=== PATIENT | male | born 1950 | race Caucasian/White ===

== ENCOUNTER 2017-08-09 23:55 | Emergency (ER) | payer MEDICARE, BC ==
[2017-08-10] MEDS ORDERED: HYDROmorphone 1 MG/ML Syringe IVPUSH ONE ×2 (00:06→01:22)
[2017-08-10] MEDS ORDERED: Sodium Chloride 0.9% 10 ML Syringe FLUSH PRN (00:07)
[2017-08-10 01:11] LABS: CHLORIDE,CL 105 mmol/L (98-107); SODIUM,NA 140 mmol/L (136-145)
[2017-08-10] MEDS ORDERED: Take Home: Acetaminophen/HYDROcodone 325-10 MG, 5 Tab Pack PO ONE (01:23)
--- NOTE | 2017-08-10 01:23 | EDM.PDOC ---
ED HPI GENERAL MEDICAL PROBLEM - General Stated Complaint: Left shoulder pain, bruising Time Seen by Provider: 08/09/17 23:55 Source of Information: Reports: Patient History Limitations: Reports: No Limitations - History of Present Illness INITIAL COMMENTS - FREE TEXT/NARRATIVE: Pt. states that he slipped on some from approx. 1 week ago. He states that he landed on his L arm. Pt. states that today he began experiencing ecchymosis, edema, and pain to the area. He denies any new trauma to the area. Pt. is currently anticoagulated with coumadin. Onset Date: 08/10/17 Location: Reports: Upper Extremity, Left Quality: Reports: Ache, Pressure Severity: Severe Worsens with: Reports: Medication - Related Data Allergies Allergy/AdvReac Type Severity Reaction Status Date / Time penicillin Allergy Cannot Verified 08/10/17 01:19 Remember Home Meds: Home Meds Celecoxib [CeleBREX] 200 mg PO DAILY 10/08/14 [History] Insulin Aspart [NovoLOG] 10 unit SQ WMBED 10/08/14 [History] Insulin Glarg,Human.Rec.Analog [LantUS] 55 unit SUBCUT ASDIRECTED 10/08/14 [ History] Losartan/Hydrochlorothiazide [Losartan-HCTZ 50-12.5 MG] 1 each PO DAILY [History] Metoprolol Tartrate 12.5 mg PO BID 10/08/14 [History] Oseltamivir [Tamiflu] 45 mg PO BID 10/08/14 [History] Potassium Chloride [Klor-Con M20] 20 meq PO DAILY 10/08/14 [History] Pravastatin [Pravachol] 5 mg PO DAILY 10/08/14 [History] Warfarin Sodium [Jantoven] 5 mg PO DAILY 10/08/14 [History] metFORMIN [Glucophage] 1,000 mg PO BIDM 10/08/14 [History] Social & Family History - Tobacco Use Smoking Status *Q: Unknown Ever Smoked Review of Systems - Review of Systems Review Of Systems: See Below Constitutional: Reports: No Symptoms Eyes: Reports: No Symptoms Ears: Reports: No Symptoms Nose: Reports: No Symptoms Mouth/Throat: Reports: No Symptoms Respiratory: Reports: No Symptoms Cardiovascular: Reports: No Symptoms GI/Abdominal: Reports: No Symptoms Genitourinary: Reports: No Symptoms Musculoskeletal: Reports: Arm Pain (left anterior upper arm) Skin: Reports: No Symptoms Neurological: Reports: No Symptoms Psychiatric: Reports: No Symptoms ED EXAM, GENERAL - Physical Exam Exam: See Below Exam Limited By: No Limitations General Appearance: Alert, WD/WN, No Apparent Distress Respiratory/Chest: No Respiratory Distress, Lungs Clear, Normal Breath Sounds, No Accessory Muscle Use, Chest Non-Tender Cardiovascular: Normal Peripheral Pulses, Regular Rate, Rhythm, No Edema, No Gallop, No JVD, No Murmur, No Rub Peripheral Pulses: 3+: Radial (L), Radial (R) GI/Abdominal: Soft, Non-Tender, No Organomegaly Extremities: Other (large hematoma noted to pt. L upper arm/axilla. ) Neurological: Alert, Oriented, CN II-XII Intact, Normal Cognition, Normal Reflexes Course - Orders/Labs/Meds Orders: Active Orders 24 hr Category Date Time Status Shoulder Comp Lt [CR] Stat Exams 08/10/17 00:07 Taken CBC WITH AUTO DIFF [HEME] Stat Lab 08/10/17 00:39 Results COMPREHENSIVE METABOLIC PN,CMP [CHEM] Stat Lab 08/10/17 00:39 Received INR,PT,PROTHROMBIN TIME [COAG] Stat Lab 08/10/17 00:39 Received MANUAL DIFFERENTIAL QA/NC [HEME] Stat Lab 08/10/17 00:39 Results Sodium Chloride 0.9% [Saline Flush] Med 08/10/17 00:07 Active 10 ml FLUSH ASDIRECTED PRN Peripheral IV Insertion Adult [OM.PC] Routine Oth 08/10/17 00:07 Ordered Medication Orders Sodium Chloride (Saline Flush) 10 ml FLUSH ASDIRECTED PRN PRN Reason: Keep Vein Open Labs: Laboratory Tests 08/10/17 Range/Units 00:39 WBC 14.3 H (4.0-10.0) x10^3/uL RBC 4.69 (4.5-6.0) x10^6/uL Hgb 13.0 L (14.0-18.0) g/dL Hct 39.8 L (40.0-52.0) % MCV 84.9 (78.0-93.0) fL MCH 27.7 (26.0-32.0) pg MCHC 32.7 (32.0-36.0) g/dL RDW Coeff of Smiley 20.5 H (10.0-15.0) % Plt Count 173 (130-400) x10^3/uL Add Manual Diff Yes Meds: Medications Generic Name Dose Route Start Last Admin Trade Name Freq PRN Reason Stop Dose Admin Sodium Chloride 10 ml 08/10/17 00:07 Saline Flush FLUSH ASDIRECTED PRN Keep Vein Open Discontinued Medications Generic Name Dose Route Start Last Admin Trade Name Fretyler PRN Reason Stop Dose Admin Hydromorphone HCl 1 mg 08/10/17 00:06 Dilaudid IVPUSH 08/10/17 00:07 ONETIME ONE Departure - Departure Time of Disposition: 01:33 Disposition: Home, Self-Care 01 Condition: Good Clinical Impression: Spontaneous hematoma of upper arm - Discharge Information - Problem List & Annotations (1) Spontaneous hematoma of upper arm SNOMED Code(s): 649487845 Code(s): R23.3 - SPONTANEOUS ECCHYMOSES Status: Acute Current Visit: Yes - My Orders Last 24 Hours: My Active Orders 08/10/17 00:07 Shoulder Comp Lt [CR] Stat Sodium Chloride 0.9% [Saline Flush] 10 ml FLUSH ASDIRECTED PRN Peripheral IV Insertion Adult [OM.PC] Routine 08/10/17 00:39 CBC WITH AUTO DIFF [HEME] Stat COMPREHENSIVE METABOLIC PN,CMP [CHEM] Stat INR,PT,PROTHROMBIN TIME [COAG] Stat MANUAL DIFFERENTIAL QA/NC [HEME] Stat - Assessment/Plan Last 24 Hours: My Active Orders 08/10/17 00:07 Shoulder Comp Lt [CR] Stat Sodium Chloride 0.9% [Saline Flush] 10 ml FLUSH ASDIRECTED PRN Peripheral IV Insertion Adult [OM.PC] Routine 08/10/17 00:39 CBC WITH AUTO DIFF [HEME] Stat COMPREHENSIVE METABOLIC PN,CMP [CHEM] Stat INR,PT,PROTHROMBIN TIME [COAG] Stat MANUAL DIFFERENTIAL QA/NC [HEME] Stat
== END 2017-08-10 02:08 | disposition home or self-care (01) ==
LOC: VM.ED 23:55
DX: R23.3 Spontaneous ecchymoses (principal); Z79.4 Long term (current) use of insulin; Z79.899 Other long term (current) drug therapy; Z79.01 Long term (current) use of anticoagulants; Z79.84 Long term (current) use of oral hypoglycemic drugs; Z88.0 Allergy status to penicillin
CPT/HCPCS: 36415; 73030; 80053; 85025; 85610; 96374; 96376; 99284; A9270; J1170; 99283-GF

== ENCOUNTER 2017-12-06 21:08 | Emergency (ER) | payer MEDICARE, BC ==
[2017-12-06] MEDS ORDERED: Sodium Chloride 0.9% 10 ML Syringe FLUSH PRN (21:32)
[2017-12-06] MEDS ORDERED: HYDROmorphone 1 MG/ML Syringe IVPUSH ONE (21:32)
--- NOTE | 2017-12-06 21:38 | EDM.PDOC ---
ED HPI GENERAL MEDICAL PROBLEM - General Chief Complaint: General Stated Complaint: leg pain Time Seen by Provider: 12/06/17 21:16 Source of Information: Reports: Patient, Family History Limitations: Reports: No Limitations - History of Present Illness INITIAL COMMENTS - FREE TEXT/NARRATIVE: Patient comes in with complaints of bilateral leg pain that started earlier today. He takes bumex for fluid management and he states he had 2 prior episodes today before this one. Rates his leg pain 8-9/10 on initial presentation. Formerly on KCL, but was instructed to discontinue. He was seen today in [place] for a wound visit. He states he has a right calf wound that has not healed since April. This was wrapped and he continues to take bactrim. He does have extensive medical history including diabetes, htn, chf, BPH, hypercholesterolemia. Does take coumadin Onset: Today Onset Date: 12/06/17 Location: Reports: Lower Extremity, Left, Lower Extremity, Right Quality: Reports: Other (cramping) Severity: Severe Treatments UPHOLSTERER OUTSIDE: Reports: Other Medication(s) (muscle relaxant, oxycodone) - Related Data Allergies Allergy/AdvReac Type Severity Reaction Status Date / Time penicillin Allergy Cannot Verified 08/10/17 01:19 Remember Home Meds: Home Meds Celecoxib [CeleBREX] 200 mg PO DAILY 10/08/14 [History] Insulin Aspart [NovoLOG] 10 unit SQ WMBED 10/08/14 [History] Insulin Glarg,Human.Rec.Analog [LantUS] 55 unit SUBCUT ASDIRECTED 10/08/14 [ History] Losartan/Hydrochlorothiazide [Losartan-HCTZ 50-12.5 MG] 1 each PO DAILY [History] Metoprolol Tartrate 12.5 mg PO BID 10/08/14 [History] Oseltamivir [Tamiflu] 45 mg PO BID 10/08/14 [History] Potassium Chloride [Klor-Con M20] 20 meq PO DAILY 10/08/14 [History] Pravastatin [Pravachol] 5 mg PO DAILY 10/08/14 [History] Warfarin Sodium [Jantoven] 5 mg PO DAILY 10/08/14 [History] metFORMIN [Glucophage] 1,000 mg PO BIDM 10/08/14 [History] Past Medical History Cardiovascular History: Reports: Afib Endocrine/Metabolic History: Reports: Diabetes, Type II - Past Surgical History GI Surgical History: Reports: Bariatric Procedure, Hernia Repair/Other, Other ( See Below) Other GI Surgeries/Procedures: many abdominal surgeries due to bad outcome of hernia surgery. Social & Family History - Tobacco Use Smoking Status *Q: Unknown Ever Smoked ED ROS GENERAL - Review of Systems Review Of Systems: See Below Constitutional: Reports: No Symptoms HEENT: Reports: No Symptoms Respiratory: Reports: No Symptoms Cardiovascular: Reports: No Symptoms Endocrine: Reports: No Symptoms GI/Abdominal: Reports: No Symptoms : Reports: No Symptoms Musculoskeletal: Reports: Leg Pain, Other (bilateral leg cramps) Skin: Reports: No Symptoms Neurological: Reports: No Symptoms Psychiatric: Reports: No Symptoms Hematologic/Lymphatic: Reports: No Symptoms Immunologic: Reports: No Symptoms ED EXAM, GENERAL - Physical Exam Exam: See Below Exam Limited By: No Limitations General Appearance: Alert, WD/WN, Moderate Distress Eye Exam: Bilateral Eye: Normal Inspection, PERRL Head: Atraumatic, Normocephalic Neck: Normal Inspection, Supple, Non-Tender, Full Range of Motion Respiratory/Chest: No Respiratory Distress, Lungs Clear, Normal Breath Sounds, No Accessory Muscle Use, Chest Non-Tender Cardiovascular: Normal Peripheral Pulses, Regular Rate, Rhythm, No Edema, No Gallop, No JVD, No Murmur, No Rub Extremities: Other (bilateral lower legs wrapped with carrie wrap and dressing) Neurological: Alert, Oriented, CN II-XII Intact, Normal Cognition, Normal Gait, Normal Reflexes, No Motor/Sensory Deficits Psychiatric: Normal Affect, Normal Mood Skin Exam: Other (legs wrapped under fresh dressing, right calf sore, left shipman and toe sores) Lymphatic: No Adenopathy Course - Orders/Labs/Meds Orders: Active Orders 24 hr Category Date Time Status LORazepam [Ativan] Med 12/06/17 22:25 Once 1 mg IVPUSH ONETIME ONE Sodium Chloride 0.9% [Saline Flush] Med 12/06/17 21:32 Ordered 10 ml FLUSH ASDIRECTED PRN Saline Lock Insert [OM.PC] Routine Oth 12/06/17 21:32 Ordered Medication Orders Lorazepam (Ativan) 1 mg IVPUSH ONETIME ONE Stop: 12/06/17 22:26 Sodium Chloride (Saline Flush) 10 ml FLUSH ASDIRECTED PRN PRN Reason: Keep Vein Open Labs: Laboratory Tests 12/06/17 12/06/17 12/06/17 Range/Units 21:30 21:30 21:30 WBC 16.3 H (4.0-10.0) x10^3/uL RBC 4.56 (4.5-6.0) x10^6/uL Hgb 12.6 L (14.0-18.0) g/dL Hct 38.4 L (40.0-52.0) % MCV 84.2 (78.0-93.0) fL MCH 27.6 (26.0-32.0) pg MCHC 32.8 (32.0-36.0) g/dL RDW Coeff of Smiley 17.1 H (10.0-15.0) % Plt Count 280 D (130-400) x10^3/uL Add Manual Diff Yes Neutrophils % (Manual) 84 H (50-80) % Band Neutrophils % 5 (0-6) % Lymphocytes % (Manual) 8 L (25-50) % Monocytes % (Manual) 3 (2-11) % Platelet Estimate Adequate Anisocytosis 1+ slight H PT 20.1 H (9.8-11.8) SEC INR 1.9 L (2.0-3.5) Sodium 133 L (136-145) mmol/L Potassium 3.7 (3.5-5.1) mmol/L Chloride 95 L (98-107) mmol/L Carbon Dioxide 24 (21-32) mmol/L BUN 50 H (7-18) mg/dL Creatinine 2.1 H (0.70-1.30) mg/dL Est Cr Clr Drug Dosing TNP Estimated GFR (MDRD) 31 Glucose 335 H (74-106) mg/dL Calcium 8.7 (8.5-10.1) mg/dL Corrected Calcium 9.18 (8.5-10.1) mg/dL Magnesium (1.8-2.4) mg/dL Total Bilirubin 0.6 (0.2-1.0) mg/dL AST 24 (15-37) U/L ALT 70 H (16-63) U/L Alkaline Phosphatase 81 (46-116) U/L Creatine Kinase 247 (39-308) U/L Total Protein 6.4 (6.4-8.2) g/dL Albumin 3.4 (3.4-5.0) g/dL Globulin 3.0 Albumin/Globulin Ratio 1.13 Urine Color (YELLOW) Urine Appearance (CLEAR) Urine pH (5.0-8.0) Ur Specific [place] Urine Protein (NEGATIVE) mg/dL Urine Glucose (UA) (NEGATIVE) mg/dL Urine Ketones (NEGATIVE) mg/dL Urine Occult Blood (NEGATIVE) Urine Nitrite (NEGATIVE) Urine Bilirubin (NEGATIVE) Urine Urobilinogen (0.2) EU/dL Ur Leukocyte Esterase (NEGATIVE) Urine RBC (NOT SEEN) /HPF Urine WBC (NOT SEEN) /HPF Ur Squamous Epith Cells (NEGATIVE) /HPF Urine Bacteria (NEGATIVE) /HPF Urine Mucus (NEGATIVE) /LPF 12/06/17 12/06/17 Range/Units 21:30 21:40 WBC (4.0-10.0) x10^3/uL RBC (4.5-6.0) x10^6/uL Hgb (14.0-18.0) g/dL Hct (40.0-52.0) % MCV (78.0-93.0) fL MCH (26.0-32.0) pg MCHC (32.0-36.0) g/dL RDW Coeff of Smiley (10.0-15.0) % Plt Count (130-400) x10^3/uL Add Manual Diff Neutrophils % (Manual) (50-80) % Band Neutrophils % (0-6) % Lymphocytes % (Manual) (25-50) % Monocytes % (Manual) (2-11) % Platelet Estimate Anisocytosis PT (9.8-11.8) SEC INR (2.0-3.5) Sodium (136-145) mmol/L Potassium (3.5-5.1) mmol/L Chloride (98-107) mmol/L Carbon Dioxide (21-32) mmol/L BUN (7-18) mg/dL Creatinine (0.70-1.30) mg/dL Est Cr Clr Drug Dosing Estimated GFR (MDRD) Glucose (74-106) mg/dL Calcium (8.5-10.1) mg/dL Corrected Calcium (8.5-10.1) mg/dL Magnesium 1.9 (1.8-2.4) mg/dL Total Bilirubin (0.2-1.0) mg/dL AST (15-37) U/L ALT (16-63) U/L Alkaline Phosphatase (46-116) U/L Creatine Kinase (39-308) U/L Total Protein (6.4-8.2) g/dL Albumin (3.4-5.0) g/dL Globulin Albumin/Globulin Ratio Urine Color Yellow (YELLOW) Urine Appearance Clear (CLEAR) Urine pH 5.0 (5.0-8.0) Ur Specific [place] 1.015 Urine Protein Negative (NEGATIVE) mg/dL Urine Glucose (UA) 500 H (NEGATIVE) mg/dL Urine Ketones Negative (NEGATIVE) mg/dL Urine Occult Blood Negative (NEGATIVE) Urine Nitrite Negative (NEGATIVE) Urine Bilirubin Negative (NEGATIVE) Urine Urobilinogen 0.2 (0.2) EU/dL Ur Leukocyte Esterase Negative (NEGATIVE) Urine RBC 0-5 (NOT SEEN) /HPF Urine WBC 0-5 (NOT SEEN) /HPF Ur Squamous Epith Cells Rare (NEGATIVE) /HPF Urine Bacteria Rare (NEGATIVE) /HPF Urine Mucus Not seen (NEGATIVE) /LPF Meds: Medications Generic Name Dose Route Start Last Admin Trade Name Freq PRN Reason Stop Dose Admin Lorazepam 1 mg 12/06/17 22:25 Ativan IVPUSH 12/06/17 22:26 ONETIME ONE Sodium Chloride 10 ml 12/06/17 21:32 Saline Flush FLUSH ASDIRECTED PRN Keep Vein Open Discontinued Medications Generic Name Dose Route Start Last Admin Trade Name Freq PRN Reason Stop Dose Admin Hydromorphone HCl 1 mg 12/06/17 21:32 12/06/17 21:57 Dilaudid IVPUSH 12/06/17 21:33 1 mg ONETIME ONE Administration - Re-Assessments/Exams Free Text/Narrative Re-Assessment/Exam: 12/06/17 22:43 I did loosen both wraps which appeared to be to constrictive Departure - Departure Time of Disposition: 22:37 Disposition: Home, Self-Care 01 Condition: Fair Clinical Impression: Muscle cramping - Discharge Information Instructions: Muscle Cramps and Spasms, [id number], Leg Cramps Forms: ED Department Discharge Additional Instructions: Stay well hydrated I would follow up with your primary doctor regarding the muscle cramps. Have him look at possible medication reactions. Your CARRIE wraps did appear to be a bit too tight Your electrolytes were within normal limits Please call if you have any questions or concerns - Problem List & Annotations (1) Muscle cramping SNOMED Code(s): 68542557 Code(s): R25.2 - CRAMP AND SPASM Status: Acute Priority: Low Current Visit: Yes - Problem List Review Problem List Initiated/Reviewed/Updated: Yes - My Orders Last 24 Hours: My Active Orders 12/06/17 21:32 Sodium Chloride 0.9% [Saline Flush] 10 ml FLUSH ASDIRECTED PRN Saline Lock Insert [OM.PC] Routine 12/06/17 22:25 LORazepam [Ativan] 1 mg IVPUSH ONETIME ONE - Assessment/Plan Last 24 Hours: My Active Orders 12/06/17 21:32 Sodium Chloride 0.9% [Saline Flush] 10 ml FLUSH ASDIRECTED PRN Saline Lock Insert [OM.PC] Routine 12/06/17 22:25 LORazepam [Ativan] 1 mg IVPUSH ONETIME ONE Assessment:: bilateral leg cramping Plan: Stay well hydrated I would follow up with your primary doctor regarding the muscle cramps. Have him look at possible medication reactions. Your CARRIE wraps did appear to be a bit too tight Your electrolytes were within normal limits Please call if you have any questions or concerns
[2017-12-06 21:59] LABS: CHLORIDE,CL 95 mmol/L (98-107); SODIUM,NA 133 mmol/L (136-145)
[2017-12-06] MEDS ORDERED: LORazepam 2 MG/ML MDV IVPUSH ONE (22:25)
== END 2017-12-06 22:45 | disposition home or self-care (01) ==
LOC: VM.ED 21:08
DX: R25.2 Cramp and spasm (principal); E11.9 Type 2 diabetes mellitus without complications; I11.0 Hypertensive heart disease with heart failure; I50.9 Heart failure, unspecified; E78.00 Pure hypercholesterolemia, unspecified; I48.91 Unspecified atrial fibrillation; Z88.0 Allergy status to penicillin; Z79.899 Other long term (current) drug therapy; Z79.4 Long term (current) use of insulin; Z79.01 Long term (current) use of anticoagulants
CPT/HCPCS: 36415; 80053; 81001; 82550; 83735; 85025; 85610; 96374; 96375; 99283; 99283-GF; J1170; J2060

== ENCOUNTER 2017-12-08 12:31 | Emergency (ER) | payer MEDICARE, BC ==
[2017-12-08] MEDS ORDERED: Sodium Chloride 0.9% 10 ML Syringe FLUSH PRN (13:07)
[2017-12-08 13:47] LABS: CHLORIDE,CL 94 mmol/L (98-107); SODIUM,NA 131 mmol/L (136-145)
[2017-12-08] MEDS: Sodium Chloride 0.9% 1,000 ML IV ONE (14:19)
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
== END 2017-12-08 14:57 | disposition short-term general hospital (02) ==
LOC: VM.ED 12:31
DX: A41.9 Sepsis, unspecified organism (principal); R65.11 Systemic inflammatory response syndrome (SIRS) of non-infectious origin with acute organ dysfunction; I48.91 Unspecified atrial fibrillation; N18.3 Chronic kidney disease, stage 3 (moderate); D72.829 Elevated white blood cell count, unspecified; E11.9 Type 2 diabetes mellitus without complications; E87.2 Acidosis; Z88.0 Allergy status to penicillin; Z79.4 Long term (current) use of insulin; Z79.899 Other long term (current) drug therapy
CPT/HCPCS: 36415; 71046; 80053; 83605; 83735; 83880; 84100; 85008; 85025; 86140; 87040; 93005; 96360; 99285; J7030

== ENCOUNTER 2018-03-19 11:28 | Emergency (ER) | payer MEDICARE, BC ==
[2018-03-19] MEDS ORDERED: Sodium Chloride 0.9% 10 ML Syringe FLUSH PRN (11:49)
[2018-03-19] MEDS: Sodium Chloride 0.9% 1,000 ML IV ONE ×2 (12:00→13:46)
[2018-03-19] MEDS ORDERED: Diltiazem 25 MG/5 ML SDV IVPUSH ONE (12:05)
[2018-03-19] MEDS ORDERED: oxyCODONE 5 MG Tab PO ONE (12:18)
[2018-03-19 13:00] LABS: CHLORIDE,CL 97 mmol/L (98-107); SODIUM,NA 133 mmol/L (136-145)
[2018-03-19] MEDS ORDERED: Ertapenem 1 GM Vial IVPUSH ONE (13:17)
--- NOTE | 2018-03-19 13:26 | EDM.PDOC ---
ED HPI GENERAL MEDICAL PROBLEM - General Chief Complaint: General Stated Complaint: er Time Seen by Provider: 03/19/18 11:35 Source of Information: Reports: Patient History Limitations: Reports: No Limitations - History of Present Illness INITIAL COMMENTS - FREE TEXT/NARRATIVE: Pt. presents to ER with fever, chills, sweats, and racing heart. Pt. has a history of large, open lesions to his legs. Has been to [facility] and it is felt they are diabetic ulcers, but his local medical team feels as though it is pyoderma. Pt. states that he does not feel good and that he has a significant amount of pain from his legs. Onset: Today Location: Reports: Lower Extremity, Left, Lower Extremity, Right, Generalized Bilateral Leg Pain Score (Numeric/FACES): 4 - Related Data Allergies Allergy/AdvReac Type Severity Reaction Status Date / Time penicillin Allergy Cannot Verified 03/19/18 12:44 Remember Home Meds: Home Meds Insulin Aspart [NovoLOG] 18 unit SQ TIDMEALS 10/08/14 [History] Insulin Glarg,Human.Rec.Analog [LantUS] 55 unit SUBCUT BID 10/08/14 [History] Pravastatin [Pravachol] 10 mg PO Q2D 10/08/14 [History] Warfarin Sodium [Jantoven] 5 mg PO ASDIRECTED 10/08/14 [History] metFORMIN [Glucophage] 1,000 mg PO BIDM 10/08/14 [History] Acetaminophen [Tylenol] 650 mg PO Q4H PRN 12/08/17 [History] Bumetanide [Bumex] 2 mg PO BID 12/08/17 [History] Cyanocobalamin (Vitamin B-12) [Vitamin B-12] 500 mcg PO DAILY 12/08/17 [History] Ferrous Sulfate 325 mg PO BIDMEALS 12/08/17 [History] Gabapentin [Neurontin] 300 mg PO TID 12/08/17 [History] Mycophenolate Mofetil [Cellcept] 500 mg PO BID 12/08/17 [History] Tamsulosin [Tamsulosin 24 Hr] 0.4 mg PO DAILY 12/08/17 [History] oxyCODONE 5 mg PO Q4H PRN 12/08/17 [History] predniSONE [Prednisone] 60 mg PO DAILY 12/08/17 [History] Cyclobenzaprine [Flexeril] 10 mg PO TID PRN 03/19/18 [History] Latanoprost [Xalatan] 1 drop EYEBOTH BEDTIME 03/19/18 [History] Losartan [Cozaar] 50 mg PO DAILY 03/19/18 [History] Metoprolol Succinate [Toprol XL] 25 mg PO DAILY 03/19/18 [History] Morphine [MS Contin] 15 mg PO Q12H 03/19/18 [History] Triamcinolone Acetonide [Kenalog 0.1% Crm] 1 dose TOP DAILY 03/19/18 [History] buPROPion [Wellbutrin SR] 300 mg PO DAILY 03/19/18 [History] Past Medical History Cardiovascular History: Reports: Afib Genitourinary History: Reports: Prostate Disorder Endocrine/Metabolic History: Reports: Diabetes, Type II - Past Surgical History GI Surgical History: Reports: Bariatric Procedure, Hernia Repair/Other, Other ( See Below) Other GI Surgeries/Procedures: many abdominal surgeries due to bad outcome of hernia surgery. ED ROS GENERAL - Review of Systems Review Of Systems: See Below Constitutional: Reports: No Symptoms HEENT: Reports: No Symptoms Respiratory: Reports: No Symptoms Cardiovascular: Reports: No Symptoms Endocrine: Reports: No Symptoms GI/Abdominal: Reports: No Symptoms : Reports: No Symptoms Musculoskeletal: Reports: No Symptoms Skin: Reports: No Symptoms Neurological: Reports: No Symptoms Hematologic/Lymphatic: Reports: No Symptoms ED EXAM, GENERAL - Physical Exam Exam: See Below Exam Limited By: No Limitations General Appearance: Alert, WD/WN, No Apparent Distress Neck: Normal Inspection, Supple, Non-Tender, Full Range of Motion Respiratory/Chest: No Respiratory Distress, Lungs Clear, Normal Breath Sounds, No Accessory Muscle Use, Chest Non-Tender Cardiovascular: Normal Peripheral Pulses, Regular Rate, Rhythm, No Edema, No Gallop, No JVD, No Murmur, No Rub EKG INTERPRETATION Rhythm: NSR [place]: Normal P-Wave: Present QRS: Normal ST-T: Normal QT: Normal Course - Vital Signs Last Recorded V/S: Last Vital Signs Temp 37.2 C 03/19/18 11:35 Pulse 108 H 03/19/18 11:35 Resp 16 03/19/18 11:35 BP 130/88 03/19/18 11:35 Pulse Ox 98 03/19/18 11:35 - Orders/Labs/Meds Orders: Active Orders 24 hr Category Date Time Status Cardiac Monitoring [RC] CONTINUOUS Care 03/19/18 11:49 Active EKG Documentation Completion [RC] STAT Care 03/19/18 11:50 Active Chest 1V Frontal [CR] Stat Exams 03/19/18 11:50 Ordered CULTURE BLOOD [BC] Stat Lab 03/19/18 11:51 Ordered CULTURE BLOOD [BC] Stat Lab 03/19/18 11:51 Ordered Sodium Chloride 0.9% [Saline Flush] Med 03/19/18 11:49 Active 10 ml FLUSH ASDIRECTED PRN Blood Culture x2 Reflex Set [OM.PC] Stat Oth 03/19/18 11:51 Ordered Peripheral IV Insertion Adult [OM.PC] Routine Oth 03/19/18 11:51 Ordered Medication Orders Sodium Chloride (Saline Flush) 10 ml FLUSH ASDIRECTED PRN PRN Reason: Keep Vein Open Labs: Laboratory Tests 03/19/18 03/19/18 03/19/18 Range/Units 11:51 11:51 11:51 WBC 11.1 H (4.0-10.0) x10^3/uL RBC 3.63 L (4.5-6.0) x10^6/uL Hgb 9.0 L D (14.0-18.0) g/dL Hct 30.2 L (40.0-52.0) % MCV 83.2 (78.0-93.0) fL MCH 24.8 L (26.0-32.0) pg MCHC 29.8 L (32.0-36.0) g/dL RDW Coeff of Msiley 21.3 H (10.0-15.0) % Plt Count 314 (130-400) x10^3/uL Add Manual Diff Yes Neutrophils % (Manual) 85 H (50-80) % Band Neutrophils % 2 (0-6) % Lymphocytes % (Manual) 4 L (25-50) % Monocytes % (Manual) 5 (2-11) % Eosinophils % (Manual) 1 (0-4) % Metamyelocytes % 2 H (0) % Myelocytes % 1 H (0) % Nucleated RBCs 1 (0-5) /100WBC Hypersegmented Neuts Rare H Toxic Granulation 1+ slight H Platelet Estimate Adequate Hypochromasia 2+ moderate H Anisocytosis 4+ H Microcytosis 1+ slight H Target Cells Rare Tear Drop Cells 1+ slight H Ovalocytes 2+ moderate H Stomatocytes Rare Acanthocytes (Spur) 1+ slight H Schistocytes Rare PT 20.8 H (9.6-11.4) SEC INR 2.0 (2.0-3.5) Sodium 133 L (136-145) mmol/L Potassium 3.5 (3.5-5.1) mmol/L Chloride 97 L (98-107) mmol/L Carbon Dioxide 30 (21-32) mmol/L Anion Gap 9.5 L (10-20) mmol/L BUN 36 H (7-18) mg/dL Creatinine 1.4 H (0.70-1.30) mg/dL Est Cr Clr Drug Dosing TNP Estimated GFR (MDRD) 50 Glucose 171 H (74-106) mg/dL Lactic Acid (0.4-2.0) mmol/L Calcium 8.5 (8.5-10.1) mg/dL Corrected Calcium 9.46 (8.5-10.1) mg/dL Phosphorus 4.6 (2.6-4.7) mg/dL Magnesium 2.1 (1.8-2.4) mg/dL Total Bilirubin 0.3 (0.2-1.0) mg/dL AST 21 (15-37) U/L ALT 53 (16-63) U/L Alkaline Phosphatase 76 (46-116) U/L Troponin I 0.026 (<=0.056) ng/mL C-Reactive Protein 0.7 (<=0.9) mg/dL NT-Pro-B Natriuret Pep 888 H (<=125) pg/mL Total Protein 6.1 L (6.4-8.2) g/dL Albumin 2.8 L (3.4-5.0) g/dL Globulin 3.3 Albumin/Globulin Ratio 0.85 03/19/18 Range/Units 11:51 WBC (4.0-10.0) x10^3/uL RBC (4.5-6.0) x10^6/uL Hgb (14.0-18.0) g/dL Hct (40.0-52.0) % MCV (78.0-93.0) fL MCH (26.0-32.0) pg MCHC (32.0-36.0) g/dL RDW Coeff of Smiley (10.0-15.0) % Plt Count (130-400) x10^3/uL Add Manual Diff Neutrophils % (Manual) (50-80) % Band Neutrophils % (0-6) % Lymphocytes % (Manual) (25-50) % Monocytes % (Manual) (2-11) % Eosinophils % (Manual) (0-4) % Metamyelocytes % (0) % Myelocytes % (0) % Nucleated RBCs (0-5) /100WBC Hypersegmented Neuts Toxic Granulation Platelet Estimate Hypochromasia Anisocytosis Microcytosis Target Cells Tear Drop Cells Ovalocytes Stomatocytes Acanthocytes (Spur) Schistocytes PT (9.6-11.4) SEC INR (2.0-3.5) Sodium (136-145) mmol/L Potassium (3.5-5.1) mmol/L Chloride (98-107) mmol/L Carbon Dioxide (21-32) mmol/L Anion Gap (10-20) mmol/L BUN (7-18) mg/dL Creatinine (0.70-1.30) mg/dL Est Cr Clr Drug Dosing Estimated GFR (MDRD) Glucose (74-106) mg/dL Lactic Acid 2.1 H* (0.4-2.0) mmol/L Calcium (8.5-10.1) mg/dL Corrected Calcium (8.5-10.1) mg/dL Phosphorus (2.6-4.7) mg/dL Magnesium (1.8-2.4) mg/dL Total Bilirubin (0.2-1.0) mg/dL AST (15-37) U/L ALT (16-63) U/L Alkaline Phosphatase (46-116) U/L Troponin I (<=0.056) ng/mL C-Reactive Protein (<=0.9) mg/dL NT-Pro-B Natriuret Pep (<=125) pg/mL Total Protein (6.4-8.2) g/dL Albumin (3.4-5.0) g/dL Globulin Albumin/Globulin Ratio Meds: Medications Generic Name Dose Route Start Last Admin Trade Name Freq PRN Reason Stop Dose Admin Sodium Chloride 10 ml 03/19/18 11:49 Saline Flush FLUSH ASDIRECTED PRN Keep Vein Open Discontinued Medications Generic Name Dose Route Start Last Admin Trade Name Freq PRN Reason Stop Dose Admin Diltiazem HCl 20 mg 03/19/18 12:05 Diltiazem IVPUSH 03/19/18 12:06 ONETIME ONE Ertapenem 1 gm 03/19/18 13:17 Invanz IVPUSH 03/19/18 13:18 STAT ONE Sodium Chloride 1,000 mls @ 1,000 mls/hr 03/19/18 12:05 03/19/18 12:00 Normal Saline IV 03/19/18 13:04 1,000 mls/hr .BOLUS ONE Administration Oxycodone HCl 10 mg 03/19/18 12:18 03/19/18 12:23 Oxycodone PO 03/19/18 12:19 10 mg ONETIME ONE Administration Departure - Departure Time of Disposition: 13:50 Disposition: DC/Tfer to [facility] 02 Condition: Fair Clinical Impression: Sepsis affecting skin, Paroxysmal A-fib Sepsis Qualifiers: Sepsis type: sepsis due to unspecified organism Qualified Code(s): A41.9 - Sepsis, unspecified organism - Discharge Information Referrals: PCP,Not In Area [Primary Care Provider] - - My Orders Last 24 Hours: My Active Orders 03/19/18 11:49 Cardiac Monitoring [RC] CONTINUOUS Sodium Chloride 0.9% [Saline Flush] 10 ml FLUSH ASDIRECTED PRN 03/19/18 11:50 EKG Documentation Completion [RC] STAT Chest 1V Frontal [CR] Stat 03/19/18 11:51 CULTURE BLOOD [BC] Stat CULTURE BLOOD [BC] Stat Blood Culture x2 Reflex Set [OM.PC] Stat Peripheral IV Insertion Adult [OM.PC] Routine - Assessment/Plan Last 24 Hours: My Active Orders 03/19/18 11:49 Cardiac Monitoring [RC] CONTINUOUS Sodium Chloride 0.9% [Saline Flush] 10 ml FLUSH ASDIRECTED PRN 03/19/18 11:50 EKG Documentation Completion [RC] STAT Chest 1V Frontal [CR] Stat 03/19/18 11:51 CULTURE BLOOD [BC] Stat CULTURE BLOOD [BC] Stat Blood Culture x2 Reflex Set [OM.PC] Stat Peripheral IV Insertion Adult [OM.PC] Routine
[2018-03-19] MEDS ORDERED: Sodium Chloride 0.9% 1,000 ML IV ONE (13:46)
== END 2018-03-19 14:35 | disposition short-term general hospital (02) ==
LOC: VM.ED 11:28
DX: A41.9 Sepsis, unspecified organism (principal); I48.0 Paroxysmal atrial fibrillation; E11.9 Type 2 diabetes mellitus without complications; Z79.4 Long term (current) use of insulin; Z79.01 Long term (current) use of anticoagulants; Z79.899 Other long term (current) drug therapy; Z88.0 Allergy status to penicillin
CPT/HCPCS: 36415; 71045; 80053; 81001; 83605; 83735; 83880; 84100; 84484; 85025; 85610; 86140; 87040; 93005; 96361; 96374; 99285; A9270; J1335; J7030; 93010; 99284-GF-25

== ENCOUNTER 2020-04-15 09:34 | Emergency (ER) | payer MEDICARE, BC ==
--- NOTE | 2020-04-15 10:25 | EDM.PDOC ---
ED HPI GENERAL MEDICAL PROBLEM - General Chief Complaint: General Stated Complaint: SENT FROM [facility] Time Seen by Provider: 04/15/20 10:15 Source of Information: Reports: Patient History Limitations: Reports: No Limitations - History of Present Illness INITIAL COMMENTS - FREE TEXT/NARRATIVE: Patient comes emergency department today from home with complaints of low hemoglobin. This patient had his blood drawn a few days ago in the clinic due to some recent fluid accumulation and edema to his lower extremities. He was contacted this morning and told to go to the emergency department because his hemoglobin was 5.5. As patient has not seen a doctor in over a year. He had seen his primary care in [place] on Monday due to some increase edema and swelling shortness of breath fatigue and malaise. Was started on some Lasix at that time for the edema and had blood work drawn. He was called and contacted and told to come to the ER because his hemoglobin is 5.5. He does complaint that his weight is improved as well as edema to his lower extremities. His shortness of breath is improved as well. He still gets winded but not like he did before. He has no chest pain palpitations he does complain of some generalized weakness but nothing severe. No syncope. Complains of shortness of breath with physical exertion. No cough or congestion. No fever no chills. No COVID symptoms. No abdominal pain nausea or vomiting. He is unaware of any black or tarry stools as he never looks at his stools. He has had a GI bleed in the past. He is on Coumadin long-term for anticoagulation. Does have a history of a lower GI Bleed. Last scope was 5 years ago. He is really asymptomatic at this time and doesn't want to be here since he feels "just fine". - Related Data Allergies Allergy/AdvReac Type Severity Reaction Status Date / Time penicillin AdvReac Intermediate Diarrhea Verified 04/15/20 10:10 Home Meds: Home Meds Insulin Aspart [NovoLOG] 30 unit SQ TIDMEALS 10/08/14 [History] Insulin Glarg,Human.Rec.Analog [LantUS] 70 unit SUBCUT BID 10/08/14 [History] Pravastatin [Pravachol] 10 mg PO Q2D 10/08/14 [History] Warfarin Sodium [Jantoven] 5 mg PO ASDIRECTED 10/08/14 [History] metFORMIN [Glucophage] 500 mg PO BIDM 10/08/14 [History] Acetaminophen [Tylenol] 650 mg PO Q4H PRN 12/08/17 [History] Bumetanide [Bumex] 1 mg PO BID 12/08/17 [History] Cyanocobalamin (Vitamin B-12) [Vitamin B-12] 500 mcg PO DAILY 12/08/17 [History] Ferrous Sulfate 325 mg PO BIDMEALS 12/08/17 [History] Gabapentin [Neurontin] 300 mg PO TID 12/08/17 [History] Tamsulosin [Tamsulosin 24 Hr] 0.8 mg PO DAILY 12/08/17 [History] mycophenolate mofetiL [Cellcept] 1,000 mg PO BID 12/08/17 [History] oxyCODONE 5 mg PO Q6H PRN 12/08/17 [History] predniSONE [Prednisone] 20 mg PO ASDIRECTED 12/08/17 [History] Cyclobenzaprine [Flexeril] 10 mg PO TID PRN 03/19/18 [History] Latanoprost [Xalatan] 1 drop EYEBOTH BEDTIME 03/19/18 [History] Losartan [Cozaar] 50 mg PO DAILY 03/19/18 [History] Metoprolol Succinate [Toprol XL] 25 mg PO DAILY 03/19/18 [History] Morphine [MS Contin] 15 mg PO Q12H 03/19/18 [History] Triamcinolone Acetonide [Kenalog 0.1% Crm] 1 dose TOP DAILY 03/19/18 [History] buPROPion [Wellbutrin SR] 300 mg PO DAILY 03/19/18 [History] Past Medical History Cardiovascular History: Reports: Afib Genitourinary History: Reports: Prostate Disorder Endocrine/Metabolic History: Reports: Diabetes, Type II - Past Surgical History GI Surgical History: Reports: Bariatric Procedure, Hernia Repair/Other, Other (See Below) Other GI Surgeries/Procedures: many abdominal surgeries due to bad outcome of hernia surgery. ED ROS GENERAL - Review of Systems Review Of Systems: Comprehensive ROS is negative, except as noted in HPI. ED EXAM, GENERAL - Physical Exam Exam: See Below Exam Limited By: No Limitations General Appearance: Alert, WD/WN, Obese (Morbidly) Eye Exam: Bilateral Eye: EOMI Ears: Normal External Exam Nose: Normal Inspection Throat/Mouth: Normal Inspection Head: Atraumatic Neck: Normal Inspection, Supple Respiratory/Chest: No Respiratory Distress, Lungs Clear, Normal Breath Sounds Cardiovascular: Normal Peripheral Pulses, Regular Rate, Rhythm, Systolic Murmur (Thrill high pitched heard over the right sternal border best 3/5. ) Peripheral Pulses: 2+: Radial (L), Radial (R), Posterior Tibial (L), Posterior Tibial (R), Dorsalis Pedis (L), Dorsalis Pedis (R) GI/Abdominal: Normal Bowel Sounds, Soft, Non-Tender, Hernia (chronic none painful. reducable ) (Male) Exam: Deferred Rectal (Males) Exam: Prostate Normal, Heme - Stool. No: Black Stool, Bloody Stool, Decreased Rectal Tone, Fecal Impaction, Hemorrhoids, Prostate Nodule, Rectal Fissure, Tenderness Back Exam: Normal Inspection Extremities: Normal Inspection, Non-Tender, Pedal Edema Neurological: Alert, Oriented, Normal Cognition, No Motor/Sensory Deficits Psychiatric: Normal Affect, Normal Mood Skin Exam: Warm, Dry, Intact, Cool, Pallor Lymphatic: No Adenopathy EKG INTERPRETATION EKG Date: 04/15/20 Time: 09:53 Rhythm: NSR Rate (Beats/Min): 76 [place]: Normal P-Wave: Present QRS: LBBB ST-T: Normal QT: Prolonged Comparison: Change From Previous EKG (New LBBB and prolonged QT.) Course - Vital Signs Last Recorded V/S: Last Vital Signs Temp 98.9 F 04/15/20 10:20 Pulse 81 04/15/20 10:20 Resp 16 04/15/20 10:20 BP 122/42 L 04/15/20 11:07 Pulse Ox 96 04/15/20 10:20 - Orders/Labs/Meds Orders: Active Orders 24 hr Category Date Time Status Furosemide [Lasix] Med 04/15/20 12:44 Active 20 mg IV ONETIME PRN Phytonadione [AquaMephyton] 5 mg Med 04/15/20 12:44 Active Sodium Chloride 0.9% [Normal Saline] 100 ml IV ONETIME Sodium Chloride 0.9% [Saline Flush] Med 04/15/20 11:20 Active 10 ml FLUSH ASDIRECTED PRN Peripheral IV Insertion Adult [OM.PC] Stat Oth 04/15/20 11:20 Ordered Peripheral IV Insertion Adult [OM.PC] Urgent Oth 04/15/20 11:19 Ordered Transfuse PRBC [Transfuse Red Blood Cells] [COMM] Stat Oth 04/15/20 11:19 Ordered Transfuse PRBC [Transfuse Red Blood Cells] [COMM] Stat Ot 04/15/20 12:45 Ordered Medication Orders Furosemide (Lasix) 20 mg IV ONETIME PRN PRN Reason: Other Phytonadione 5 mg/ Sodium (Chloride) 100.5 mls @ 300 mls/hr IV ONETIME ONE Stop: 04/15/20 13:03 Sodium Chloride (Saline Flush) 10 ml FLUSH ASDIRECTED PRN PRN Reason: Keep Vein Open Labs: Laboratory Tests 04/15/20 04/15/20 04/15/20 Range/Units 10:41 10:41 10:41 WBC 7.0 (4.0-10.0) x10^3/uL RBC 2.62 L (4.5-6.0) x10^6/uL Hgb 5.4 L* D (14.0-18.0) g/dL Hct 19.8 L (40.0-52.0) % MCV 75.6 L D (78.0-93.0) fL MCH 20.6 L (26.0-32.0) pg MCHC 27.3 L (32.0-36.0) g/dL RDW Coeff of Smiley 20.6 H (10.0-15.0) % Plt Count 243 (130-400) x10^3/uL Neut % (Auto) 80.4 H (50.0-80.0) % Lymph % (Auto) 11.3 L (25.0-50.0) % [place] % (Auto) 5.7 (2.0-11.0) % Eos % (Auto) 2.0 (0.0-4.0) % Baso % (Auto) 0.6 (0.2-1.2) % PT 24.3 H (9.5-12.3) SEC INR 2.3 (2.0-3.5) APTT 43.7 H (25.6-32.8) SEC Sodium 140 (136-145) mmol/L Potassium 4.2 (3.5-5.1) mmol/L Chloride 103 (98-107) mmol/L Carbon Dioxide 28 (21-32) mmol/L Anion Gap 13.2 (10-20) mmol/L BUN 19 H (7-18) mg/dL Creatinine 1.4 H (0.70-1.30) mg/dL Est Cr Clr Drug Dosing 53.12 mL/min Estimated GFR (MDRD) 50 Glucose 83 (74-106) mg/dL Calcium 8.4 L (8.5-10.1) mg/dL Corrected Calcium 8.72 (8.5-10.1) mg/dL Total Bilirubin 0.6 (0.2-1.0) mg/dL AST 22 (15-37) U/L ALT 46 (16-63) U/L Alkaline Phosphatase 100 (46-116) U/L Troponin I < 0.017 (<=0.056) ng/mL NT-Pro-B Natriuret Pep 848 H (<=125) pg/mL Total Protein 6.2 L (6.4-8.2) g/dL Albumin 3.6 (3.4-5.0) g/dL Globulin 2.6 Albumin/Globulin Ratio 1.38 Stool Occult Blood (NEGATIVE) 04/15/20 Range/Units 11:30 WBC (4.0-10.0) x10^3/uL RBC (4.5-6.0) x10^6/uL Hgb (14.0-18.0) g/dL Hct (40.0-52.0) % MCV (78.0-93.0) fL MCH (26.0-32.0) pg MCHC (32.0-36.0) g/dL RDW Coeff of Smiley (10.0-15.0) % Plt Count (130-400) x10^3/uL Neut % (Auto) (50.0-80.0) % Lymph % (Auto) (25.0-50.0) % [place] % (Auto) (2.0-11.0) % Eos % (Auto) (0.0-4.0) % Baso % (Auto) (0.2-1.2) % PT (9.5-12.3) SEC INR (2.0-3.5) APTT (25.6-32.8) SEC Sodium (136-145) mmol/L Potassium (3.5-5.1) mmol/L Chloride (98-107) mmol/L Carbon Dioxide (21-32) mmol/L Anion Gap (10-20) mmol/L BUN (7-18) mg/dL Creatinine (0.70-1.30) mg/dL Est Cr Clr Drug Dosing mL/min Estimated GFR (MDRD) Glucose (74-106) mg/dL Calcium (8.5-10.1) mg/dL Corrected Calcium (8.5-10.1) mg/dL Total Bilirubin (0.2-1.0) mg/dL AST (15-37) U/L ALT (16-63) U/L Alkaline Phosphatase (46-116) U/L Troponin I (<=0.056) ng/mL NT-Pro-B Natriuret Pep (<=125) pg/mL Total Protein (6.4-8.2) g/dL Albumin (3.4-5.0) g/dL Globulin Albumin/Globulin Ratio Stool Occult Blood Negative (NEGATIVE) Meds: Medications Generic Name Dose Route Start Last Admin Trade Name Freq PRN Reason Stop Dose Admin Furosemide 20 mg 04/15/20 12:44 Lasix IV ONETIME PRN Other Phytonadione 5 mg/ Sodium 100.5 mls @ 300 mls/hr 04/15/20 12:44 Chloride IV 04/15/20 13:03 ONETIME ONE Sodium Chloride 10 ml 04/15/20 11:20 Saline Flush FLUSH ASDIRECTED PRN Keep Vein Open Discontinued Medications Generic Name Dose Route Start Last Admin Trade Name Freq PRN Reason Stop Dose Admin Pantoprazole Sodium 80 mg 04/15/20 11:22 04/15/20 11:49 Protonix Iv IVPUSH 04/15/20 11:23 80 mg ONETIME ONE Administration - Radiology Interpretation Free Text/Narrative:: CXR cardiomegaly with borderline central vascular congestion and small bilateral pleural effusions - Re-Assessments/Exams Free Text/Narrative Re-Assessment/Exam: 04/15/20 11:53 His Hgb is 5.4. His Hemoccult is negative. His EKG is somewhat changed from his last here in 2018 with the development of left bundle branch and a prolonged QR interval. Type and cross for 1 unit. protonix 80mg IVP Consider Vit K since he is on Coumadin although no identified site of bleeding at this time. 04/15/20 12:57 I called and spoke with DR. Lund the hospitalist cfo controller at [facility] in [place]. HPI ER COURSE findings and concerns were relayed to him. With no history of stroke we will reverse his INR with VIt K 5mg IVPB. Start 1st unit of blood and transfer. The patient is comfortable with the plan of care and his questions. Departure - Departure Time of Disposition: 12:47 Disposition: DC/Tfer to [facility] 02 Clinical Impression: Anemia Qualifiers: Anemia type: unspecified type Qualified Code(s): D64.9 - Anemia, unspecified - Discharge Information Referrals: PCP,None [Primary Care Provider] - Forms: ED Department Discharge, Interfacility Transfer [place] Sepsis Event Note (ED) - Evaluation Sepsis Screening Result: No Definite Risk - Focused Exam Vital Signs: Vital Signs Temp Pulse Resp BP Pulse Ox 04/15/20 11:07 122/42 L 04/15/20 10:20 98.9 F 81 16 115/43 L 96 - My Orders Last 24 Hours: My Active Orders 04/15/20 11:19 Peripheral IV Insertion Adult [OM.PC] Urgent Transfuse PRBC [Transfuse Red Blood Cells] [COMM] Stat 04/15/20 11:20 Sodium Chloride 0.9% [Saline Flush] 10 ml FLUSH ASDIRECTED PRN Peripheral IV Insertion Adult [OM.PC] Stat 04/15/20 12:44 Furosemide [Lasix] 20 mg IV ONETIME PRN Phytonadione [AquaMephyton] 5 mg Sodium Chloride 0.9% [Normal Saline] 100 ml IV ONETIME 04/15/20 12:45 Transfuse PRBC [Transfuse Red Blood Cells] [COMM] Stat - Assessment/Plan Last 24 Hours: My Active Orders 04/15/20 11:19 Peripheral IV Insertion Adult [OM.PC] Urgent Transfuse PRBC [Transfuse Red Blood Cells] [COMM] Stat 04/15/20 11:20 Sodium Chloride 0.9% [Saline Flush] 10 ml FLUSH ASDIRECTED PRN Peripheral IV Insertion Adult [OM.PC] Stat 04/15/20 12:44 Furosemide [Lasix] 20 mg IV ONETIME PRN Phytonadione [AquaMephyton] 5 mg Sodium Chloride 0.9% [Normal Saline] 100 ml IV ONETIME 04/15/20 12:45 Transfuse PRBC [Transfuse Red Blood Cells] [COMM] Stat Assessment:: Anemia severe most likely from slow lower GI Bleed. Hx of CHF Plan: Transfer to [facility] for further care and evaluation.
--- NOTE | 2020-04-15 10:51 | CR ---
[id number] RAD/RAD Chest PA And Lateral EXAM: FRONTAL AND LATERAL CHEST INDICATION: SHORTNESS OF BREATH. COMPARISON: March 19, 2018. DISCUSSION: There is mild cardiomegaly with borderline central vascular congestion. Interval development of small bilateral pleural effusions. Associated bibasilar atelectasis with no definite infiltrates. IMPRESSION: 1. Cardiomegaly with borderline central vascular congestion and small bilateral pleural effusions. Harish Barber MD 04/15/20 1049 Thank you for allowing us to participate in the care of your patient.
[2020-04-15 11:17] LABS: CHLORIDE,CL 103 mmol/L (98-107); SODIUM,NA 140 mmol/L (136-145)
[2020-04-15 11:19] LABS: ANION GAP 13.2 mmol/L (10-20)
[2020-04-15] MEDS ORDERED: Sodium Chloride 0.9% 10 ML Syringe FLUSH PRN (11:20)
[2020-04-15] MEDS ORDERED: Pantoprazole 40 MG Vial IVPUSH ONE (11:22)
[2020-04-15 11:59] LABS: PTT,PARTIAL THROMBOPLSTIN TIME 43.7 SEC (25.6-32.8)
[2020-04-15] MEDS ORDERED: Furosemide 20 MG/2 ML VIAL IV PRN (12:44)
== END 2020-04-15 14:20 | disposition short-term general hospital (02) ==
LOC: VM.ED 09:34
DX: D64.9 Anemia, unspecified (principal); I48.91 Unspecified atrial fibrillation; E11.9 Type 2 diabetes mellitus without complications; E66.01 Morbid (severe) obesity due to excess calories; Z68.42 Body mass index [BMI] 45.0-49.9, adult; I44.7 Left bundle-branch block, unspecified; Z88.0 Allergy status to penicillin; Z79.4 Long term (current) use of insulin; Z79.899 Other long term (current) drug therapy
CPT/HCPCS: 36415; 36430; 71046; 80053; 82274; 83880; 84484; 85025; 85610; 85730; 86850; 86900; 86901; 86920; 86922; 93005; 93010; 96365; 96375; 99284-GF; 99285-25; C9113; J3430; J7050; P9016

== ENCOUNTER 2020-06-22 19:50 | Emergency (ER) | payer MEDICARE, BC ==
--- NOTE | 2020-06-23 15:53 | EDM.PDOC ---
ED HPI GENERAL MEDICAL PROBLEM - General Chief Complaint: Skin Complaint Stated Complaint: Bleeding from face, skin pimple Time Seen by Provider: 06/22/20 20:10 Source of Information: Reports: Patient History Limitations: Reports: No Limitations - History of Present Illness INITIAL COMMENTS - FREE TEXT/NARRATIVE: Pt. presents to ER with complaints of bleeding from the outside of the R side of his nose. He is on coumadin. He states that he noticed a small "pimple" to the R lateral aspect of his nose. He states that he use a scissors to "pop" the lesion. He states that it has been bleeding for an hour despite direct pressure, but it has not stopped. Pt. states that he was experiencing some diarrhea, nausea, and vomiting approx. 24-48 hours prior to arrival to ER, but pt. states that all of these symptoms have resolved. He states that his appetite has been normal. He has been able to eat and drink without difficulty today. Pt. states that his INR last Monday was 3.5, so his coumadin was decreased at that time. Denies any bloody stools, epistaxis, or bleeding elsewhere. Onset Date: 06/22/20 Location: Reports: Face Treatments TANKAGE SUPERVISOR: Reports: Cold Therapy Other Treatments TANKAGE SUPERVISOR: pressure - Related Data Allergies Allergy/AdvReac Type Severity Reaction Status Date / Time penicillin AdvReac Intermediate Diarrhea Verified 04/15/20 10:10 Home Meds: Home Meds Insulin Aspart [NovoLOG] 30 unit SQ TIDMEALS 10/08/14 [History] Insulin Glarg,Human.Rec.Analog [LantUS] 70 unit SUBCUT BID 10/08/14 [History] Pravastatin [Pravachol] 10 mg PO Q2D 10/08/14 [History] Warfarin Sodium [Jantoven] 5 mg PO ASDIRECTED 10/08/14 [History] metFORMIN [Glucophage] 500 mg PO BIDM 10/08/14 [History] Acetaminophen [Tylenol] 650 mg PO Q4H PRN 12/08/17 [History] Bumetanide [Bumex] 1 mg PO BID 12/08/17 [History] Cyanocobalamin (Vitamin B-12) [Vitamin B-12] 500 mcg PO DAILY 12/08/17 [History] Ferrous Sulfate 325 mg PO BIDMEALS 12/08/17 [History] Gabapentin [Neurontin] 300 mg PO TID 12/08/17 [History] Tamsulosin [Tamsulosin 24 Hr] 0.8 mg PO DAILY 12/08/17 [History] mycophenolate mofetiL [Cellcept] 1,000 mg PO BID 12/08/17 [History] oxyCODONE 5 mg PO Q6H PRN 12/08/17 [History] predniSONE [Prednisone] 20 mg PO ASDIRECTED 12/08/17 [History] Cyclobenzaprine [Flexeril] 10 mg PO TID PRN 03/19/18 [History] Latanoprost [Xalatan] 1 drop EYEBOTH BEDTIME 03/19/18 [History] Losartan [Cozaar] 50 mg PO DAILY 03/19/18 [History] Metoprolol Succinate [Toprol XL] 25 mg PO DAILY 03/19/18 [History] Morphine [MS Contin] 15 mg PO Q12H 03/19/18 [History] Triamcinolone Acetonide [Kenalog 0.1% Crm] 1 dose TOP DAILY 03/19/18 [History] buPROPion [Wellbutrin SR] 300 mg PO DAILY 03/19/18 [History] Past Medical History Cardiovascular History: Reports: Afib Other Cardiovascular History: Venous insufficiency of both lower extremities. Ascending aorta dilation Genitourinary History: Reports: Prostate Disorder Other Genitourinary History: Stage III Chronic kidney disease. Erectile dysfunction Psychiatric History: Reports: Anxiety, Depression, Other (See Below) Other Psychiatric History: Chronic/continuous use of opioids (contract signed) Endocrine/Metabolic History: Reports: Diabetes, Type II Other Endocrine/Metabolic History: Insulin controlled Hematologic History: Reports: Anemia, Other (See Below) Other Hematologic History: Iron deficiency anemia Dermatologic History: Reports: Other (See Below) Other Dermatologic History: Ulcer of lower extremity. Pyoderma gangrenosum - Past Surgical History GI Surgical History: Reports: Bariatric Procedure, Hernia Repair/Other, Other (See Below) Other GI Surgeries/Procedures: many abdominal surgeries due to bad outcome of hernia surgery. Social & Family History - Tobacco Use Smoking Status *Q: Unknown Ever Smoked - Recreational Drug Use Recreational Drug Use: No ED ROS GENERAL - Review of Systems Review Of Systems: Comprehensive ROS is negative, except as noted in HPI. ED EXAM, GENERAL - Physical Exam Exam: See Below Head: Atraumatic, Normocephalic Neck: Other (small, actively bleeding puncture wound noted to base of R lateral nose. ) Respiratory/Chest: No Respiratory Distress, Lungs Clear, Normal Breath Sounds, No Accessory Muscle Use, Chest Non-Tender Cardiovascular: Normal Peripheral Pulses, No JVD, Irregularly Irregular Peripheral Pulses: 4+: Radial (R) GI/Abdominal: Soft, Non-Tender, No Distention, No Mass ED GENERAL MEDICAL PROCEDURES - Additional/Other Procedure(s) Other (Free Text) Procedure(s): silver nitrate stick was used to coagulate bleeding to R lateral nose. Course - Vital Signs Last Recorded V/S: Last Vital Signs Temp 36.9 C 06/22/20 19:50 Pulse 85 06/22/20 19:50 Resp 18 06/22/20 19:50 BP 136/49 L 06/22/20 19:50 Pulse Ox 95 06/22/20 19:50 Departure - Departure Time of Disposition: 20:15 Disposition: Home, Self-Care 01 Clinical Impression: Puncture wound - Discharge Information Instructions: Bleeding Precautions When on Anticoagulant Therapy, Pediatric Referrals: PCP,Not In Area [Primary Care Provider] - Forms: ED Department Discharge Additional Instructions: Return to ER if you have continued bleeding that does not resolve with direct pressure after 45 min. Sepsis Event Note (ED) - Evaluation Sepsis Screening Result: No Definite Risk - Assessment/Plan Plan: Return to ER if you have continued bleeding that does not resolve with direct pressure after 45 min.
== END 2020-06-22 20:31 | disposition home or self-care (01) ==
LOC: VM.ED 19:50
DX: S01.23XA Puncture wound without foreign body of nose, initial encounter (principal); I48.91 Unspecified atrial fibrillation; E11.22 Type 2 diabetes mellitus with diabetic chronic kidney disease; N18.3 Chronic kidney disease, stage 3 (moderate); F41.9 Anxiety disorder, unspecified; F32.9 Major depressive disorder, single episode, unspecified; Z88.0 Allergy status to penicillin; Z79.4 Long term (current) use of insulin; Z79.899 Other long term (current) drug therapy
CPT/HCPCS: 12011; 17250; 99283

== ENCOUNTER 2022-05-04 14:36 | Inpatient (IN) | payer MEDICARE ==
[2022-05-04] MEDS ORDERED: Sodium Chloride 0.9% 1,000 ML IV ONE (14:47)
[2022-05-04] MEDS ORDERED: Sodium Chloride 0.9% 10 ML Syringe FLUSH PRN (14:47)
[2022-05-04] MEDS ORDERED: Promethazine 12.5 MG in Sodium Chloride 0.9% 100 ML IV ONE (15:19)
[2022-05-04 15:25] LABS: CHLORIDE,CL 106 mmol/L (98-107); SODIUM,NA 142 mmol/L (136-145)
[2022-05-04] MEDS ORDERED: cefTRIAXone 1 GM Vial IVPUSH SCH (15:30)
[2022-05-04 15:31] LABS: ANION GAP 16.3 mmol/L (5-15); ESTIMATED GFR 45 mL/min (>=60)
[2022-05-04 15:49] LABS: CORONAVIRUS COVID-19 NAA NEGATIVE (NEGATIVE); RESPIRATORY SYNCYTIAL VIR NAA NEGATIVE (NEGATIVE)
[2022-05-04] MEDS ORDERED: Dextrose 5%-0.45% NaCl 1,000 ML IV SCH (17:45)
[2022-05-04] MEDS ORDERED: oxyCODONE 5 MG Tab PO PRN (18:04)
[2022-05-04] MEDS ORDERED: PRAVASTATIN 10 MG PO SCH (18:15)
[2022-05-04] MEDS ORDERED: Non-Formulary Medication 1 Each (Insulin Degludec [Tresiba] 100 UNIT/ML Vial) SQ SCH (18:15)
[2022-05-04] MEDS: Tamsulosin 0.4 MG Cap.ER PO SCH (19:16)
[2022-05-04] MEDS ORDERED: Furosemide 40 MG/4 ML VIAL IV ONE (19:41)
[2022-05-04] MEDS ORDERED: Azithromycin 500 MG in Sodium Chloride 0.9% 250 ML IV SCH (20:15)
[2022-05-04] MEDS ORDERED: Insulin Glarg,Human.Rec.Analog 100 Unit/ML SUBCUT SCH (20:23)
[2022-05-04] MEDS: Gabapentin 300 MG Cap PO SCH (20:23)
[2022-05-04] MEDS ORDERED: Bumetanide 1 MG Tab PO SCH (21:00)
[2022-05-04] MEDS ORDERED: Ondansetron 4 MG Tab.DIS PO PRN (22:59)
[2022-05-04] MEDS: oxyCODONE 5 MG Tab PO PRN (23:31)
[2022-05-05] MEDS: oxyCODONE 5 MG Tab PO PRN ×2 (04:40→14:27)
[2022-05-05 07:31] LABS: ANION GAP 14.4 mmol/L (5-15)
[2022-05-05] MEDS ORDERED: Metoprolol Succinate 50 MG Tab.ER PO SCH ×2 (09:00)
[2022-05-05] MEDS ORDERED: Bumetanide 1 MG Tab PO SCH (09:00)
[2022-05-05] MEDS ORDERED: metFORMIN 500 MG Tab PO SCH (09:00)
[2022-05-05] MEDS ORDERED: Sodium Chloride 0.9% 500 ML IV ONE (09:21)
[2022-05-05] MEDS ORDERED: VANCOmycin 2 GM/400 ML 2 GM in Premix Bag 1 BAG IV ONE (09:30)
[2022-05-05] MEDS ORDERED: cefTRIAXone 2 GM Vial IVPUSH SCH (09:45)
[2022-05-05] MEDS ORDERED: Metoprolol Succinate 25 MG Tab.ER PO SCH (09:45)
[2022-05-05] MEDS: Tamsulosin 0.4 MG Cap.ER PO SCH (10:07)
[2022-05-05] MEDS: Gabapentin 300 MG Cap PO SCH ×2 (10:08→15:28)
[2022-05-05] MEDS ORDERED: cefTRIAXone 1 GM Vial IVPUSH SCH (15:00)
== END 2022-05-05 16:10 | disposition short-term general hospital (02) | DRG 872 ==
LOC: VM.ED 14:36 → VM.MS 17:36 → OBSVTOIN 17:37
PROVIDERS: ADMIT Physician Assistant; ATTEND Internal Medicine
DX: A41.89 Other specified sepsis (principal); R10.30 Lower abdominal pain, unspecified; I50.9 Heart failure, unspecified; L03.115 Cellulitis of right lower limb; J90 Pleural effusion, not elsewhere classified; I50.32 Chronic diastolic (congestive) heart failure; Z88.0 Allergy status to penicillin; I13.0 Hypertensive heart and chronic kidney disease with heart failure and stage 1 through stage 4 chronic kidney disease, or unspecified chronic kidney disease; Z68.42 Body mass index [BMI] 45.0-49.9, adult; Z20.822 Contact with and (suspected) exposure to COVID-19; I48.91 Unspecified atrial fibrillation; F41.9 Anxiety disorder, unspecified; F32.A Depression, unspecified; D50.9 Iron deficiency anemia, unspecified; I11.0 Hypertensive heart disease with heart failure; I48.0 Paroxysmal atrial fibrillation; E66.9 Obesity, unspecified; I08.0 Rheumatic disorders of both mitral and aortic valves; E11.22 Type 2 diabetes mellitus with diabetic chronic kidney disease; N18.30 Chronic kidney disease, stage 3 unspecified; E11.65 Type 2 diabetes mellitus with hyperglycemia; D63.1 Anemia in chronic kidney disease; N40.0 Benign prostatic hyperplasia without lower urinary tract symptoms; Z79.01 Long term (current) use of anticoagulants; Z79.4 Long term (current) use of insulin; Z86.14 Personal history of Methicillin resistant Staphylococcus aureus infection; Z79.899 Other long term (current) drug therapy; Z79.1 Long term (current) use of non-steroidal anti-inflammatories (NSAID); Z98.890 Other specified postprocedural states; Z98.84 Bariatric surgery status
CPT/HCPCS: 0241U; 36415; 71045; 71250; 74018; 74176; 80053; 80202; 81003; 82947; 83605; 83735; 83880; 84484; 85025; 85610; 86140; 87040; 87070; 87077; 87147; 87184; 87186; 93005; 94760; A9270-GY; J0456; J0696; J1940; J2550; J3370; J7030; J7042; J7050